=== PATIENT | male | born 1995 | race Caucasian/White ===

== ENCOUNTER 2016-12-16 11:48 | Emergency (ER) | payer OTHER ==
[~2016-12-16] VITALS: Ht 185.4 cm; Wt 72.1 kg
[~2016-12-16 11:48] MED LIST: NOHOMEMEDS
[2016-12-16 12:04] VITALS: BP 149/98
== END 2016-12-16 14:15 | disposition left against medical advice (07) ==
LOC: EME 11:48
DX: M25.471 Effusion, right ankle (principal); Z53.21 Procedure and treatment not carried out due to patient leaving prior to being seen by health care provider